=== PATIENT | female | born 1975 | race Caucasian/White ===

== ENCOUNTER → 2017-09-13 | Outpatient (CLI) | payer OTHER | LOC: FIMAGING 13:37 | PROVIDERS: ATTEND Advanced Practice Midwife | DX: O09.522 Supervision of elderly multigravida, second trimester (principal); Z3A.19 19 weeks gestation of pregnancy ==

== ENCOUNTER → 2017-09-14 | Outpatient (CLI) | payer OTHER | LOC: FIMAGING 07:58 | PROVIDERS: ATTEND Advanced Practice Midwife | DX: O09.522 Supervision of elderly multigravida, second trimester (principal); O28.3 Abnormal ultrasonic finding on antenatal screening of mother; Z3A.19 19 weeks gestation of pregnancy ==

== ENCOUNTER → 2017-10-21 | Outpatient (CLI) | payer OTHER | LOC: FIMAGING 09:26 | PROVIDERS: ATTEND Advanced Practice Midwife | DX: O09.522 Supervision of elderly multigravida, second trimester (principal); Z3A.25 25 weeks gestation of pregnancy ==

== ENCOUNTER → 2017-12-14 | Outpatient (CLI) | payer OTHER | LOC: FIMAGING 09:04 | PROVIDERS: ATTEND Advanced Practice Midwife | DX: O36.5910 Maternal care for other known or suspected poor fetal growth, first trimester, not applicable or unspecified (principal); O28.5 Abnormal chromosomal and genetic finding on antenatal screening of mother; Z3A.32 32 weeks gestation of pregnancy ==

== ENCOUNTER → 2018-01-06 | Outpatient (CLI) | payer OTHER | LOC: FIMAGING 13:17 | PROVIDERS: ATTEND Advanced Practice Midwife | DX: O09.523 Supervision of elderly multigravida, third trimester (principal); O35.8XX0 Maternal care for other (suspected) fetal abnormality and damage, not applicable or unspecified; Z3A.36 36 weeks gestation of pregnancy ==

== ENCOUNTER 2018-01-10 08:00 | Observation (INO) | payer OTHER ==
[2018-01-10] MEDS ORDERED: PROPRANOLOL HCL 1 MG/ML VIAL IV PRN (08:28)
[2018-01-10] MEDS ORDERED: TERBUTALINE SULFATE 1 MG/ML VIAL ONE (08:34)
--- NOTE | 2018-01-10 08:38 | PDGENHP ---
History and Physical History and Physical: CARE: [facility] HPI: Patient is a 42 yo G 4 P 2 @ 36 weeks 3 days who presents to L&D for external cephalic version. EDC: 02/03/18 which is based on LMP: 04/28/17 which is known and consistent with Ultrasound at 15 weeks. 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 Review of Systems: Constitutional: Denies any fever, chills, or fatigue HEENT: denies any visual changes, difficulty swallowing, hearing loss Cardiovascular: Denies any chest pain, palpitations, leg swelling Respiratory: denies any cough, wheezing, or shortness of breathe GI: Denies any nausea, vomiting, diarrhea, constipation : denies any dysuria, urgency, frequency, vaginal bleeding Musculoskeletal: denies any muscle or bone pain Skin: denies any rashes Neuro: denies any headache, seizures, lightheadedness, dizziness, or loss of consciousness Psychiatric: denies any depression, anxiety, or SI/HI thoughts HISTORY: Previous OB history: 2008 7#6oz, 2010 7#4oz Social history: , self employed Family history: parents alive and well Past medical history: abnormal PAP 07/2017 HR HPV Past surgical history: denies past surgery Medications: PNV Allergies (list reaction): NKDA LABS: Rh: AB + ABS: Neg Rubella: Immune HbsAg: NR HIV: NR VDRL: NR 1hr: 72 GC: Neg Chlamydia: Neg Pap: Normal, HR HPV GBS: not done yet BMI: (prepreg) 21 PHYSICAL EXAM: Constitutional: WN, A&Ox3 HEENT: normocephalic atraumatic, supple Heart: RRR, no murmur Chest: CTA-B Skin: warm, dry, intact Abdomen: Soft, nontender, gravid SVE: not done Extremities: neg edema, negative homans sign Neuro: grossly normal Psych: normal affect assessment: FHT baseline 130, +accels, no decels, moderate variability Contractions: toco none Assessment: 1) 42 yo G 4 P 2 with IUP@ 36w3d 2) breech presentation 3) GBS unknown 4) Cat 1 FHR tracing Plan: 1) Admit to L&D for observation 2) ECV
[2018-01-10] MEDS ORDERED: OLIVE OIL 118 ML BTL ONE (08:58)
[2018-01-10] MEDS ORDERED: TERBUTALINE SULFATE 1 MG/ML VIAL IV ONE (10:36)
[2018-01-10 10:51] LABS: PLATELET COUNT 238 10^3/uL (150-400)
== END 2018-01-10 11:16 | disposition home or self-care (01) ==
LOC: FLD 08:00
PROVIDERS: ADMIT Obstetrics & Gynecology; ATTEND Obstetrics & Gynecology
PROC: 10S0XZZ Reposition Products of Conception, External Approach (ICD-10-PCS; principal; 2018-01-10)
DX: O32.1XX0 Maternal care for breech presentation, not applicable or unspecified (principal); O09.523 Supervision of elderly multigravida, third trimester; Z3A.36 36 weeks gestation of pregnancy
CPT/HCPCS: J1800; J3105

== ENCOUNTER 2018-01-17 06:19 | Inpatient (IN) | payer OTHER ==
[2018-01-17] MEDS ORDERED: TERBUTALINE SULFATE 1 MG/ML VIAL IV ONE (07:08)
[2018-01-17] MEDS ORDERED: OLIVE OIL 118 ML BTL MISC ONE (07:08)
[2018-01-17 07:23] LABS: PLATELET COUNT 240 10^3/uL (150-400)
--- NOTE | 2018-01-17 08:29 | PREANESOB ---
Obstetric Pre-Anesthesia Info - General Info Proposed Procedure: Version, labor, and delivery or C Section. : 4 Para: 2 TORRI: 02/03/18 Gestational Age: 37 week(s) and 4 day(s) - Info Status: Full Term Monitors: External FHR Baseline (bpm): 125 FHR Pattern: Reassuring - Labor Status Indications for Labor Analgesia: Induction of Labor Indications for Current Section: Breech (A C Section is planned if the version is not successfull.) Labor Epidural: Proposed (DEEJAY may be requested for induction of labor.) Anesthesia ROS: [place] teeth removed. Allergies/Adverse Reactions: Allergy/AdvReac Type Severity Reaction Status Date / Time penicillin G Allergy Intermediate Verified 01/10/18 08:25 Home Medications: Medication Instructions Recorded Fish Oil [place]-3 Softgel 21 tab PO DAILY 01/17/18 Dha 1 tab PO DAILY 01/17/18 Probiotic 01/17/18 Vit D3-Vit K/[place]/Hops 01/17/18 Vitamin B12 1 tab PO DAILY 01/17/18 Visit Medications: Discontinued Medications Generic Name Dose Route Start Last Admin Trade Name Freq PRN Reason Stop Dose Admin [place] Oil 118 ml 01/17/18 07:08 Sweet Oil MISC 01/17/18 07:09 ONCE ONE Terbutaline Sulfate 0.25 mg 01/17/18 07:08 Brethine IV 01/17/18 07:09 ONCALL ONE - Anesthesia History Response to Local Anesthetics: Normal Anesthesia & Operative History: No Prior Problems Family Anesthesia History: Negative - Social History Substance Use/Abuse: Denies - Vital Signs Blood Pressure: 107/74 Heart Rate: 79 Height/Weight (Nursing): Height 170.18 cm Weight 72.575 kg - Focused Exam Neck exam: FROM Mallampati Score: Class 1 Mouth exam: normal dental/mouth exam Pulmonary: no respiratory distress Cardiovascular: regular rate and rhythym Labs: 01/17/18 07:00 Patient ABO/Rh AB POSITIVE 01/17/18 07:00 - Plan Anesthetic Plan: SAB for C/S, possible DEEJAY for labor. Consent Signed and on Chart: Yes Patient/Guardian Understands and Agrees to Plan: Yes
[2018-01-17] MEDS ORDERED: CLINDAMYCIN 900 MG/DEXTROSE 50 ML IV ONE (08:46)
[2018-01-17] MEDS ORDERED: CITRIC ACID/SODIUM CITRATE 30 ML UDCUP PO ONE (08:46)
[2018-01-17] MEDS ORDERED: morphINE PF 5 MG/10 ML INJ ONE (08:57)
[2018-01-17] MEDS ORDERED: fentaNYL 100 MCG/2 ML INJ ONE (08:58)
[2018-01-17] MEDS ORDERED: ceFAZolin 2 GM/DEXTROSE 100 ML IV ONE (08:59)
[2018-01-17] MEDS ORDERED: DEXAMETHASONE 4 MG/ML VIAL ONE ×2 (09:08)
[2018-01-17] MEDS ORDERED: BUPIVACAINE/DEXTROSE 7.5MG/ML 2 ML SPINAL AMP SP ONE (09:08)
[2018-01-17] MEDS ORDERED: OXYTOCIN 100 UNITS/10 ML VIAL ONE (09:08)
[2018-01-17] MEDS ORDERED: PHENYLEPHRINE HCL 100 MCG/ML SYR ONE (09:08)
[2018-01-17] MEDS ORDERED: ONDANSETRON 4 MG/2 ML VIAL ONE ×2 (09:08)
--- NOTE | 2018-01-17 09:10 | PDGENHP ---
History and Physical History and Physical: CARE: [facility] HPI: Patient is a 42 yo @ 37 weeks 4 days who presents to L&D for external cephalic version. EDC: 02/03/18 which is based on LMP: 04/28/17 which is known and consistent with Ultrasound at 15 weeks. Her is complicated by: AMA, abnormal NIPT XXY, sinus inversus totalis, asymmetrical IUGR (2298grams,8th%) with elevated doppler Review of Systems: Constitutional: Denies any fever, chills, or fatigue HEENT: denies any visual changes, difficulty swallowing, hearing loss Cardiovascular: Denies any chest pain, palpitations, leg swelling Respiratory: denies any cough, wheezing, or shortness of breathe GI: Denies any nausea, vomiting, diarrhea, constipation : denies any dysuria, urgency, frequency, vaginal bleeding Musculoskeletal: denies any muscle or bone pain Skin: denies any rashes Neuro: denies any headache, seizures, lightheadedness, dizziness, or loss of consciousness Psychiatric: denies any depression, anxiety, or SI/HI thoughts HISTORY: Previous OB history: 2008 7#6oz, 2010 7#4oz Social history: , self employed, denies any tobacco, alcohol, drugs. Family history: parents alive and well Past medical history: abnormal PAP 07/2017 HR HPV Past surgical history: oral surgery Medications: PNV Allergies (list reaction): PCN- rash LABS: Rh: AB + ABS: Neg Rubella: Immune HbsAg: NR HIV: NR VDRL: NR 1hr: 72 GC: Neg Chlamydia: Neg Pap: Normal, HR HPV GBS: negative BMI: (prepreg) 21 PHYSICAL EXAM: Constitutional: WN, A&Ox3 HEENT: normocephalic atraumatic, supple Heart: RRR, no murmur Chest: CTA-B Skin: warm, dry, intact Abdomen: Soft, nontender, gravid SVE: not done Extremities: neg edema, negative homans sign Neuro: grossly normal Psych: normal affect assessment: FHT baseline 130, +accels, no decels, moderate variability Contractions: toco none Assessment: 1) 42yo with IUP@ 37-4d 2) breech presentation 3) IUGR, 8th% 4) Cat 1 FHR tracing 5) abnormal NIPT (XXY) 6) sinus inversus totalis Plan: 1) Admit to L&D 2) ECV- if unsuccessful will proceed with primary c/s 3) Emma Miller on unit and aware/agrees with POC
[2018-01-17] MEDS ORDERED: MISOPROSTOL 200 MCG TAB ONE (09:14)
[2018-01-17] MEDS ORDERED: OXYTOCIN 10 UNIT/ML VIAL ONE (09:14)
--- NOTE | 2018-01-17 10:04 | OBPROG ---
Labor Progress Note Assessment/Plan: Assessment: IUP at 37w4d, IUGR, breech --LATE NOTE--ECV ATTEMPT DONE APPROX 8:15 variable lie - ECV done last week and baby immed verted back to breech attempt at ECV Plan: attempt ECV and induce if successful, with AROM and pitocin C/S if unsuccessful 01/17/18 10:00 Subjective/Intrapartum Course: 01/17/18 10:03 Pt doing fine. No LOF or bleeding. GFM. wonders about DEEJAY prior to ECV - I don't rec as I don't want baby to easily revert. Pt counselled about ECV and ready. Objective: 01/17/18 07:00 Patient ABO/Rh AB POSITIVE 01/17/18 07:00 Temp Pulse Resp BP Pulse Ox 37.2 C 79 18 118/74 96 01/17/18 09:19 01/17/18 09:19 01/17/18 09:19 01/17/18 09:19 01/17/18 09:19 - SVE Dilation (cm): 1 Effacement (%): Less than 50 Station: -2 (midline) Membranes: Intact - Contraction Pattern Assessment Current Contraction Pattern: Other (Specify) (none) - FHR Assessment [place] FHR (bpm): 130 FHR Pattern Variability: Moderate FHR Category: 1 - Procedures Non-surgical Procedures: Other (Specify) (ECV attempt. U/S performed and baby with head in LUQ and back to right side. Breech not too low and mod fluid pocket in left quads. Terb given. Attempts x4 done to try forward roll. after first attempt, there was decel to 60s for approx 1 min and mom rolled to side and given O2, FHTs then fine and further attempts did not cause significant drop. ) Oxytocin Orders Assessment - Pre-Induction/Augmentation Assessment Gestational Age: 37 week(s) and 4 day(s) ICD10 Worksheet Patient Problems: Problems Problem Status Onset IUGR (intrauterine growth restriction) affecting care of mother Acute Failed external cephalic version Acute Breech presentation of fetus Acute
--- NOTE | 2018-01-17 11:53 | OBDEL ---
Info Type: Primary Presentation at Delivery: Breech L&D Analgesia/Anesthesia Type: Spinal GBS+: No Intrapartum Medications: Discontinued Medications Generic Name Dose Route Start Last Admin Trade Name Peri PRN Reason Stop Dose Admin Citric Acid/Sodium Citrate 30 ml 01/17/18 08:46 01/17/18 10:24 Bicitra PO 01/17/18 08:47 Not Given ONCALL ONE Clindamycin Phosphate/Dextrose 50 mls @ 100 mls/hr 01/17/18 08:46 01/17/18 09 :53 Cleocin 900 Mg (Premix) IV 01/17/18 09:15 Not Given ONCALL ONE Protocol Cefazolin Sodium/Dextrose 100 mls @ 200 mls/hr 01/17/18 08:59 01/17/18 09:52 Ancef 2 Gm IV 01/17/18 09:28 100 mls ONCALL ONE Administration Protocol Terbutaline Sulfate 0.25 mg 01/17/18 07:08 01/17/18 08:19 Brethine IV 01/17/18 07:09 0.25 mg ONCALL ONE Administration - Infant Care Provider Ship Pilot/FOOD AND BEVERAGE CONTROLLER: Lidya Moore - Hospital Course Intrapartum: 01/17/18 10:03 Pt doing fine. No LOF or bleeding. GFM. wonders about DEEJAY prior to ECV - I don't rec as I don't want baby to easily revert. Pt counselled about ECV and ready. Indications for Delivery: Growth Restriction w/Abnormal Doppler studies Vaginal Delivery - Labor and Delivery Non-surgical Procedures: Other (Specify) (ECV attempt. U/S performed and baby with head in LUQ and back to right side. Breech not too low and mod fluid pocket in left quads. Terb given. Attempts x4 done to try forward roll. after first attempt, there was decel to 60s for approx 1 min and mom rolled to side and given O2, FHTs then fine and further attempts did not cause significant drop. ) Operative Report - Delivery Pre-op Diagnoses: IUP at 37w4d, breech, failed ECV, IUGR, undesired fertility Post-op Diagnoses: same, delivered History of Prior Section: No Nulliparous Prior to Delivery: No Indications for Current Section: Breech (A C Section is planned if the version is not successfull.), Other (Specify) (IUGR, abnormal dopplers) Procedure: Unscheduled, Low Transverse, Other (Specify) (bilateral salpingectomies) Surgeon: Emma Miller Digital Art Director: Yasmin Coker Anesthesiologist: Skinny Gillis Complications: None (easy breech delivery) Findings: complete breech, both legs flexed easily, no obvious NC or body cord, vigorous at delivery, after cord clamp - immed- then cord collection for [place] and cord tissue, then cord blood for genetics. placenta del without problems. great uterine tone immediate. hysterotomy closed in 2 layers without any problems. both tubes removed without problems. robust blood vessels bilat adnexa. each vasc stitch was reinspected after uterine replacement and hemostatic. bilat ovaries normal. normal repair Specimen(s)/Path: Fallopian Tube(s) IV Fluid (ml): 3,500 EBL: 800 [place] Data TORRI: 02/03/18 Gestational Age: 37 week(s) and 4 day(s) Roca Delivery Date: 01/17/18 Delivery Time: 10:36 Sex of : Male Score (1 Min): 8 Score (5 Min): 9 ICD10 Worksheet Patient Problems: Problems Problem Status Onset IUGR (intrauterine growth restriction) affecting care of mother Acute S/P primary low transverse Acute Status post bilateral salpingectomy Acute Breech presentation of fetus Acute Failed external cephalic version Acute - ICD10 Problem Qualifiers (1) S/P primary low transverse (2) Status post bilateral salpingectomy
[2018-01-17] MEDS ORDERED: NALOXONE HCL 0.4 MG/ML INJ IVP PRN (11:59)
[2018-01-17] MEDS ORDERED: ONDANSETRON 4 MG/2 ML VIAL IVP PRN (11:59)
[2018-01-17] MEDS ORDERED: HYDROmorphONE/DILAUDID 1 MG/ML INJ IVP PRN (11:59)
[2018-01-17] MEDS ORDERED: PHENYLEPHRINE HCL 100 MCG/ML SYR IVP PRN (11:59)
[2018-01-17] MEDS ORDERED: oxyCODONE IR 5 MG TAB PO PRN (12:01)
--- NOTE | 2018-01-17 12:02 | POSTANESTH ---
Post Anesthetic Evaluation Cardiovascular Status: Normal, Stable, Similar to Pre-Op Cond Respiratory Status: Normal, Stable, Similar to Pre-op Cond. Level of Consciousness/Mental Status: Can Participate in Eval, Alert and Oriented Pain Control: Adequate, Prn Tx Ordered Nausea/Vomiting Control: Adequate, Prn Tx Ordered Complications Possibly Related to Anesthesia: None Noted
[2018-01-17] MEDS ORDERED: BISACODYL 10 MG SUPP PR PRN (12:03)
[2018-01-17] MEDS ORDERED: POLYETHYLENE GLYCOL 3350 17 GM PKT PO PRN (12:03)
[2018-01-17] MEDS ORDERED: LACTULOSE 20 GM/30 ML UDCUP PO PRN (12:03)
[2018-01-17] MEDS ORDERED: MAGNESIUM HYDROXIDE 30 ML UDCUP PO PRN (12:03)
[2018-01-17] MEDS ORDERED: KETOROLAC 30 MG/1 ML SDV IVP SCH (12:15)
[2018-01-17] MEDS: KETOROLAC 15 MG/1 ML SDV IVP SCH ×2 (14:26→21:13)
[2018-01-17] MEDS: IBUPROFEN 600 MG TAB PO SCH ×2 (16:21→19:27)
[2018-01-17] MEDS: ACETAMINOPHEN 325 MG TAB PO SCH (18:45)
[2018-01-17] MEDS: SENNOSIDES/DOCUSATE SODIUM TAB PO SCH (21:16)
[2018-01-18] MEDS: ACETAMINOPHEN 325 MG TAB PO SCH ×3 (00:44→13:46)
[2018-01-18] MEDS: IBUPROFEN 600 MG TAB PO SCH ×2 (00:44→07:19)
[2018-01-18] MEDS: KETOROLAC 15 MG/1 ML SDV IVP SCH (03:00)
[2018-01-18] MEDS ORDERED: KETOROLAC 15 MG/1 ML SDV IVP SCH (09:15)
[2018-01-18] MEDS: SENNOSIDES/DOCUSATE SODIUM TAB PO SCH (09:19)
[2018-01-18 10:33] VITALS: BP 97/72
--- NOTE | 2018-01-18 13:15 | OBPP ---
Progress Note Assessment/Plan: Assessment: 42 yo G4 now P3 POD#1 s/p primary LTCS at 37w4d - preg c/b AMA, abnormal NIPT XXY, sinus inversus totalis, asymmetrical IUGR (2298grams, 8th%) with elevated doppler. Pt is doing well postoperatively. Desires dc home (as baby being transferred to [facility] this afternoon). Plan: Will dc home - reviewed specific post op instructions for early discharge after section. NO heavy lifting x 6 weeks (not greater than 15 lb) No driving x 6 weeks. REviewed ssx of pp depression. Edwige Umana MD, FACOG [facility] 01/18/18 13:14 Subjective/ Course: Pt doing well. Eager to be discharged so she can follow [facility]. Eating without N/V. [place] reg diet. Ambulating and voiding without difficulty since catheter removed this morning. Pain well controlled with po meds. No hx of pp depression. Currently mood is good and coping well with additional stress of baby's transfer. 01/18/18 13:23 Objective: 01/17/18 07:00 Patient ABO/Rh AB POSITIVE 01/17/18 07:00 Temp Pulse Resp BP Pulse Ox 36.2 C 77 16 97/72 L 95 01/18/18 08:00 01/18/18 08:00 01/18/18 08:00 01/18/18 08:00 01/18/18 08:00 01/18/18 13:10 Patient ABO/Rh AB POSITIVE 01/17/18 07:00 Temp Pulse Resp BP Pulse Ox 36.2 C 77 16 97/72 L 95 01/18/18 08:00 01/18/18 08:00 01/18/18 08:00 01/18/18 08:00 01/18/18 08:00 Gen - pleasant female, NAD CV - RRR chest - CTAB abd - soft, + NABS, fundus firm at u-2, inc - c/d/i with steri strips intact ext - no calf tenderness, trace edema BLE Uterine Position/Fundal Height: Umbilicus -2 Uterine Tone: Firm
--- NOTE | 2018-01-18 13:46 | OBGCSDC ---
General Delivery Information - General Info : 4 Para: 3 Abortions: 1 Type: Primary L&D Analgesia/Anesthesia Type: Spinal Admission Date: 01/17/18 Labs: Patient ABO/Rh AB POSITIVE 01/17/18 07:00 Hct 35.1 % (38.0-47.0) L 01/18/18 13:10 wnl - Hospital Course Intrapartum: 01/17/18 10:03 Pt doing fine. No LOF or bleeding. GFM. wonders about DEEJAY prior to ECV - I don't rec as I don't want baby to easily revert. Pt counselled about ECV and ready. : Pt doing well. Eager to be discharged so she can follow baby [facility]. Eating without N/V. [place] reg diet. Ambulating and voiding without difficulty since catheter removed this morning. Pain well controlled with po meds. No hx of pp depression. Currently mood is good and coping well with additional stress of baby's transfer. 01/18/18 13:23 01/18/18 13:44 Follow-up with [facility] in 2 weeks for post op check. Vaginal - Procedures Non-surgical Procedures: Other (Specify) (ECV attempt. U/S performed and baby with head in LUQ and back to right side. Breech not too low and mod fluid pocket in left quads. Terb given. Attempts x4 done to try forward roll. after first attempt, there was decel to 60s for approx 1 min and mom rolled to side and given O2, FHTs then fine and further attempts did not cause significant drop. ) - Delivery Providers Surgeon: Emma Miller Machine Hose Cutter: Yasmin Coker Anesthesiologist: Skinny Gillis - Delivery Indications for Current Section: Breech (A C Section is planned if the version is not successfull.), Other (Specify) (IUGR, abnormal dopplers) Non-surgical Procedures: Other (Specify) (ECV attempt. U/S performed and baby with head in LUQ and back to right side. Breech not too low and mod fluid pocket in left quads. Terb given. Attempts x4 done to try forward roll. after first attempt, there was decel to 60s for approx 1 min and mom rolled to side and given O2, FHTs then fine and further attempts did not cause significant drop. ) Surgical Procedures: Unscheduled, Low Transverse, Other (Specify) (bilateral salpingectomies) Intra-op Complications: None (easy breech delivery) EBL: 800 Data TORRI: 02/03/18 Gestational Age: 37 week(s) and 5 day(s) [place] Delivery Date: 01/17/18 Delivery Time: 10:36 Sex of Infant: Male Weight (gm): 2304 g Score (1 Min): 8 Score (5 Min): 9 Discharge Information - Discharge Information Prescriptions: oxyCODONE IR [Oxycodone Ir (*)] 5 - 10 mg PO Q4HRS PRN #40 tab PRN Reason: Pain, Severe Ibuprofen [Motrin (*)] 600 mg PO Q6H #60 tab Condition: Fair Instruction/Follow Up: Two Weeks, Four Weeks, Six Weeks (pt discharging early d/ t [facility] [place])
== END 2018-01-18 14:35 | disposition home or self-care (01) | DRG 765 ==
LOC: FLD 06:19 → EDSTATUS 07:30 → FOB 12:45
PROVIDERS: ADMIT Obstetrics & Gynecology; ATTEND Obstetrics & Gynecology
PROC: 10D00Z1 Extraction of Products of Conception, Low, Open Approach (ICD-10-PCS; principal; 2018-01-17)
PROC: 10S0XZZ Reposition Products of Conception, External Approach (ICD-10-PCS; 2018-01-17)
DX: O32.1XX0 Maternal care for breech presentation, not applicable or unspecified (principal); O35.1XX0 Maternal care for (suspected) chromosomal abnormality in fetus, not applicable or unspecified; O36.5930 Maternal care for other known or suspected poor fetal growth, third trimester, not applicable or unspecified; Z37.0 Single live birth; Z3A.37 37 weeks gestation of pregnancy
CPT/HCPCS: J0690; J1100; J1885; J2274; J2370; J2405; J2590; J3010; J3105